=== PATIENT | female | born 1990 | race Caucasian/White ===

== ENCOUNTER 2019-03-19 09:11 | Outpatient (CLI) | payer BC, SELFPAY | END 2019-03-19 09:31 | PROVIDERS: PCP Internal Medicine; Visit Provider Obstetrics & Gynecology | DX: Z34.91 Encounter for supervision of normal pregnancy, unspecified, first trimester (principal) | CPT/HCPCS: 36415; 84702 ==

== ENCOUNTER 2019-03-21 08:29 | Outpatient (CLI) | payer BC, SELFPAY | END 2019-03-21 08:49 | PROVIDERS: PCP Internal Medicine; Visit Provider Obstetrics & Gynecology | DX: Z34.91 Encounter for supervision of normal pregnancy, unspecified, first trimester (principal) | CPT/HCPCS: 36415; 84702 ==

== ENCOUNTER 2019-03-26 15:34 | Outpatient (CLI) | payer BC, SELFPAY ==
[2019-03-26 16:05] LABS: HGB 12.5 g/dL (12.0-15.5); Mean Corp. HGB Concentration 35.7 g/dL (32.0-36.0); Mean Corpuscular Hemoglobin 33.2 pg (27.0-33.0); Mean Corpuscular Volume 93.1 fL (80-95); Mean Platelet Volume 10.2 fL (8.0-11.0); Platelet Count 201 x1000/uL (130-400); RBC 3.76 m/cumm (4.00-5.20); White Blood Cell Count 7.96 k/cumm (4.4-10.8)
== END 2019-03-26 15:54 ==
PROVIDERS: PCP Internal Medicine; Visit Provider Obstetrics & Gynecology Gynecology
DX: O02.1 Missed abortion (principal); Z01.812 Encounter for preprocedural laboratory examination; Z01.818 Encounter for other preprocedural examination
CPT/HCPCS: 36415; 85027; 86850; 86900; 86901

== ENCOUNTER 2019-03-28 10:04 | Day surgery (SDC) | payer BC, SELFPAY ==
[2019-03-28] VITALS (7 sets, daily range): BP systolic 94–113; BP diastolic 42–69; PULSE 56–62; RESP 14–16; TEMP 36.7–37.2; O2SAT 98–100
[2019-03-28] MEDS: Doxycycline Hyclate 100 MG CAP PO (10:47)
[2019-03-28] MEDS: Lactated Ringers 1,000 ML 125 ML IV (10:50)
[2019-03-28] MEDS: FAMOTIDINE 20 MG/50 ML BAG 100 MG (11:25)
[2019-03-28] MEDS: Bupivacaine 0.25% Pres-Free 30 ML VIAL (11:35)
--- NOTE | 2019-03-28 11:40 | POCSPONT_PTH ---
PATIENT: Ying Alarcon LOC: [facility] U#:[id number] AGE/SX: 28/F ROOM: RE03/28/[address]: Baylee Wu : 1990 BED: DIS: 03/28/2019 SPEC #: [id number] RECD: 03/28/19 13:03 STATUS: GEORGES REQ #: [id number] LARON: 03/28/19 11:[address]: Baylee Wu DEPT: Surgical Specimen RECD BY: Shereen Santoyo ENTERED: 03/28/19 13:04 SP TYPE: POCSPONT MELISSA DR: Cr Aguilar Tissues: 1 - ,SPONTANEOUS Procedures: GROSS AND MICRO LEVEL 4 Comments: [id number]
--- NOTE | 2019-03-28 18:22 | W.PM.OP ---
Date of service: 03/28/19 Time of Service: 18:22 Operative Note DATE OF PROCEDURE: 03/28/19 PRE-OP DIAGNOSIS: Missed AB at 10 weeks estimated gestational age. POST-OP DIAGNOSIS: same PROCEDURE: Cervical dilatation and suction curettage SURGEON: Baylee Wu FILM AND VIDEO GRAPHICS DESIGNER: Chaparro Field ANESTHESIA: GETElena ESTIMATED BLOOD LOSS: 20 PATHOLOGY: other (Products of conception to pathology) COMPLICATIONS: None Patient was transported to: PACU Patient's condition: stable Implants: None Indications: 28-year-old G1, P0 female last menstrual period of 01/13/2019 currently 10w1d EGA with a missed AB documented at the time of a dating ultrasound earlier this month. There is no evidence of a pole yolk sac at that time. Of note she had a uterine septum and the gestational sac occupied both right and left sides of the septum. I requested that Dr. Field performed an abdominal ultrasound during the D&C for visualization of both sides of the septum. Findings: Uterus retroverted sounded to 10 cm moderate amount of tissue was obtained. Procedure Description: Patient was taken to the operating room she is placed in the dorsal supine position and general endotracheal anesthesia was administered without difficulty. She was then placed in the dorsal lithotomy position in [facility]. She was prepped and draped in usual sterile fashion a bivalve speculum was placed in the vagina the cervix was infiltrated with quarter percent Marcaine without epinephrine and the anterior lip of the cervix was grasped with a single-tooth tenaculum. A paracervical block was performed with quarter percent Marcaine with infiltration of approximately 5 cc at the 4 and 8:00 cervical vaginal interface. The cervix was then sequentially dilated to a maximum of 19 Lacey. Direct visualization with the ultrasound a 7 mm curved suction cannula was inserted into the uterine cavity and attached to suction. The tissue was removed in its entirety. My impression was that the length of the uterine septum was one half of the cavity length. At the completion of the procedure there is no evidence of gestational tissue remaining. Instruments removed from the patient's vagina tenaculum site was noted to be hemostatic. The patient was then placed in the dorsal supine position and successfully awakened extubated and transported to recovery area in stable condition. She received 100 mg of oral doxycycline prior to the procedure and had in place SCDs for the entire case. All sponge lap needle counts correct x2.
== END 2019-03-28 13:10 ==
PROVIDERS: PCP Internal Medicine; Visit Provider Obstetrics & Gynecology Gynecology
PROC: (CPT 59820; principal; 2019-03-28 10:00)
DX: O02.1 Missed abortion (principal)
CPT/HCPCS: 59820; 88305; J1100; J1885; J2405; J3010

== ENCOUNTER 2019-04-06 12:01 | Outpatient (CLI) | payer BC, SELFPAY ==
[2019-04-06 12:58] LABS: HCG Quant, Pregnancy 197 mIU/mL (1-3)
== END 2019-04-06 12:21 ==
PROVIDERS: PCP Internal Medicine; Visit Provider Obstetrics & Gynecology Gynecology
DX: O02.1 Missed abortion (principal)
CPT/HCPCS: 36415; 84702

== ENCOUNTER 2019-09-19 14:18 | Outpatient (CLI) | payer BC, SELFPAY ==
[2019-09-19 14:48] LABS: Abs Immature Grans 0.03 k/cumm (0.0-0.09); Absolute Basophil Count 0.01 k/cumm (0.0-0.2); Absolute Eosinophil Count 0.11 k/cumm (0.0-0.7); Absolute Monocyte Count 0.88 k/cumm (0.11-0.7); Absolute Neutrophil Count 7.39 k/cumm (1.2-6.7); Basophils % 0.1; Eosinophils % 1.1; HCT 34.9 % (36.0-46.0); HGB 12.3 g/dL (12.0-15.5); Immature Grans % 0.3; Lymphocytes % 19.2; Mean Corp. HGB Concentration 35.2 g/dL (32.0-36.0); Mean Corpuscular Hemoglobin 32.5 pg (27.0-33.0); Mean Corpuscular Volume 92.3 fL (80-95); Mean Platelet Volume 9.5 fL (8.0-11.0); Monocytes % 8.4; Neutrophils % 70.9; Platelet Count 197 x1000/uL (130-400); RBC 3.78 m/cumm (4.00-5.20); RBC Distribution Width 11.7 % (11.7-14.6); White Blood Cell Count 10.42 k/cumm (4.4-10.8)
[2019-09-19 18:42] LABS: *AMPHETAMINES SCREEN URINE Negative (Negative); *BARBITURATES SCREEN URINE Negative (Negative); *BENZODIAZEPINES SCREEN URINE Negative (Negative); Cannabinoids THC Negative (Negative); Cocaine Screen,Urine Negative (Negative); METHADONE URINE SCREEN Negative (Negative); OPIATES URINE SCREEN Negative (Negative)
[2019-09-19 18:49] LABS: Tricyclic Antidepressants Negative (Negative)
[2019-09-20 10:54] LABS: Varicella IgG Antibody Positive (See Note)
[2019-09-20 11:11] LABS: Rubella IgG Ab (UVM) Positive (See Note)
[2019-09-20 11:48] LABS: HIV-1/2 Ag & Ab Screen Negative (Negative)
[2019-09-20 15:52] LABS: Hepatitis C Ab w Rflx HCV PCR Negative (Negative)
[2019-09-20 16:18] LABS: Hepatitis B Surface Ag Negative (Negative)
[2019-09-20 16:28] LABS: Syphilis Total Ab w/Reflex Nonreactive (Nonreactive)
[2019-09-23 22:05] LABS: Buprenorphine Negative; Norbuprenorphine Negative
== END 2019-09-19 14:38 ==
PROVIDERS: PCP Internal Medicine; Visit Provider Advanced Practice Midwife
DX: Z34.91 Encounter for supervision of normal pregnancy, unspecified, first trimester (principal); Z11.4 Encounter for screening for human immunodeficiency virus [HIV]; Z11.59 Encounter for screening for other viral diseases; Z01.84 Encounter for antibody response examination
CPT/HCPCS: 36415; 80307; 86787; 86803; 86850; 86900; 86901; 87340; 87389; 85025; 86762; 86780; 87086

== ENCOUNTER 2019-10-11 10:16 | Outpatient (CLI) | payer BC, SELFPAY ==
[2019-10-11 10:48] LABS: Kit/Specimen SENT
[2019-10-17 19:01] LABS: Specimen WB Whole Blood
[2019-10-18 15:46] LABS: Result Summary NEGATIVE; Specimen WB Whole Blood
== END 2019-10-11 10:36 ==
PROVIDERS: PCP Internal Medicine; Visit Provider Advanced Practice Midwife
DX: Z34.91 Encounter for supervision of normal pregnancy, unspecified, first trimester (principal); Z36.89 Encounter for other specified antenatal screening
CPT/HCPCS: 36415; 81329; 81220

== ENCOUNTER 2019-10-17 22:12 | Outpatient (REF) | payer BC, SELFPAY ==
[2019-10-19 14:06] LABS: Chlamydia Result Negative (Negative); GC Result Negative (Negative)
== END 2019-10-17 22:32 ==
LOC: LBN 22:12
PROVIDERS: PCP Internal Medicine; Visit Provider Advanced Practice Midwife
DX: Z34.91 Encounter for supervision of normal pregnancy, unspecified, first trimester (principal); Z11.3 Encounter for screening for infections with a predominantly sexual mode of transmission
CPT/HCPCS: 87491; 87591

== ENCOUNTER 2019-11-21 01:19 | Outpatient (CLI) | payer BC, SELFPAY ==
--- NOTE | 2019-11-21 13:45 | DI.US_ITS ---
EXAM: US OB 2-3 TRIMESTER CLINICAL HISTORY: SURVEY, POSSIBLE SEPTATED UTERUS, Z34.90 TECHNIQUE: Ultrasound performed using standard protocol. COMPARISON: No exams were available for comparison FINDINGS: The fetus is in breech position. The placenta is anterior. The biometric measurements correspond to 19 weeks 4 days. This is above the expected range based on previous dating. No abnormalities are identified. The amount of amniotic fluid appears visually normal. IMPRESSION: size is large for gestational age.
== END 2019-11-21 01:39 ==
PROVIDERS: PCP Internal Medicine; Visit Provider Advanced Practice Midwife
DX: Z34.92 Encounter for supervision of normal pregnancy, unspecified, second trimester (principal); Z3A.19 19 weeks gestation of pregnancy
CPT/HCPCS: 76805

== ENCOUNTER 2020-01-30 16:05 | Outpatient (REF) | payer BC, SELFPAY ==
[2020-01-30 15:13] LABS: Glucose,1 Hr (Glucola) 128 mg/dL (80-140)
[2020-01-30 15:19] LABS: HCT 38.4 % (36.0-46.0); HGB 13.3 g/dL (12.0-15.5); Mean Corp. HGB Concentration 34.6 g/dL (32.0-36.0); Mean Corpuscular Hemoglobin 33.3 pg (27.0-33.0); Mean Corpuscular Volume 96.2 fL (80-95); Mean Platelet Volume 11.2 fL (8.0-11.0); Platelet Count 158 x1000/uL (130-400); RBC 3.99 m/cumm (4.00-5.20); RBC Distribution Width 12.2 % (11.7-14.6); White Blood Cell Count 9.55 k/cumm (4.4-10.8)
== END 2020-01-30 16:25 ==
LOC: LBN 16:05
PROVIDERS: PCP Internal Medicine; Visit Provider Advanced Practice Midwife
DX: Z34.93 Encounter for supervision of normal pregnancy, unspecified, third trimester (principal)
CPT/HCPCS: 82950; 85027

== ENCOUNTER 2020-03-13 10:09 | Outpatient (CLI) | payer BC, SELFPAY ==
--- NOTE | 2020-03-13 13:50 | DI.US_ITS ---
EXAM: US OB JARVIS WEIGHT CLINICAL HISTORY: borderline htn, gestational htn, O13.9 TECHNIQUE: Ultrasound performed using standard protocol. COMPARISON: US US OB 2-3 TRIMESTER from 11/21/2019 FINDINGS: Ob ultrasound was performed lies in 3rd trimester protocol. biometry is consistent with gestat ional age of 36 weeks 1 day and EDC of April 09, 2020. The estimated weight is 2720 grams which is at the 87th percentile for predicted gestational age. Placenta is anterior with no placenta previa. There is visually a normal quantity of amniotic fluid and the JARVIS is 10. Fetus is in cephalic presentation. heart rate is 136 BPM. IMPRESSION: DATA REPOSITORY:
== END 2020-03-13 10:29 ==
PROVIDERS: PCP Internal Medicine; Visit Provider Advanced Practice Midwife
DX: O13.3 Gestational [pregnancy-induced] hypertension without significant proteinuria, third trimester (principal)
CPT/HCPCS: 76816

== ENCOUNTER 2020-03-13 10:52 | Observation (INO) | payer BC, SELFPAY ==
[2020-03-13 09:50] LABS: HCT 36.8 % (36.0-46.0); HGB 12.9 g/dL (12.0-15.5); Mean Corp. HGB Concentration 35.1 g/dL (32.0-36.0); Mean Corpuscular Hemoglobin 33.3 pg (27.0-33.0); Mean Corpuscular Volume 95.1 fL (80-95); Mean Platelet Volume 10.4 fL (8.0-11.0); RBC 3.87 m/cumm (4.00-5.20); RBC Distribution Width 12.1 % (11.7-14.6); White Blood Cell Count 8.38 k/cumm (4.4-10.8)
[2020-03-13 10:02] LABS: ALT 22 U/L (14-59); AST 25 U/L (15-37); Albumin 2.7 g/dL (3.4-5.0); Alkaline Phosphatase 91 U/L (46-116); Anion Gap 6.5 mmol/L (3-11); BUN 9 mg/dL (7-18); Bilirubin, Total 0.4 mg/dL (0.2-1.0); CO2 24.5 mmol/L (21.0-32.0); CREATININE 0.91 mg/dL (0.55-1.02); Calcium 8.8 mg/dL (8.5-10.1); Chloride 103 mmol/L (98-107); Glucose 99 mg/dL (74-106); Potassium 3.8 mmol/L (3.5-5.1); Sodium 134 mmol/L (136-145); Total Protein 6.4 g/dL (6.4-8.2)
[2020-03-13 10:03] LABS: PROTEIN < 6.0 mg/dL
[2020-03-13 10:04] LABS: COMMENT (LAB VIEW ONLY) 29.46 mg/dL
[2020-03-13 11:59] LABS: Platelet Count 126 x1000/uL (130-400)
== END 2020-03-13 14:18 | disposition home or self-care (01) ==
LOC: OBS 10:57
PROVIDERS: Advanced Practice Midwife; Admitting Provider Advanced Practice Midwife; PCP Internal Medicine; Visit Provider Advanced Practice Midwife
DX: O26.893 Other specified pregnancy related conditions, third trimester (principal); O13.3 Gestational [pregnancy-induced] hypertension without significant proteinuria, third trimester; Z3A.34 34 weeks gestation of pregnancy
CPT/HCPCS: 36415; 80053; 85027; 59025; 82565; 84156; 84550; 85049; G0378

== ENCOUNTER 2020-03-28 18:52 | Outpatient (REF) | payer BC, SELFPAY ==
[2020-03-28 19:28] LABS: *AMPHETAMINES SCREEN URINE Negative (Negative); *BARBITURATES SCREEN URINE Negative (Negative); *BENZODIAZEPINES SCREEN URINE Negative (Negative); Cannabinoids THC Negative (Negative); Cocaine Screen,Urine Negative (Negative); METHADONE URINE SCREEN Negative (Negative); OPIATES URINE SCREEN Negative (Negative)
[2020-03-28 19:29] LABS: Tricyclic Antidepressants Negative (Negative)
[2020-04-04 12:57] LABS: Buprenorphine Negative; Norbuprenorphine Negative
== END 2020-03-28 19:12 ==
LOC: LBN 18:52
PROVIDERS: PCP Internal Medicine; Visit Provider Advanced Practice Midwife
DX: Z34.93 Encounter for supervision of normal pregnancy, unspecified, third trimester (principal); Z36.85 Encounter for antenatal screening for Streptococcus B
CPT/HCPCS: 80307; 87081

== ENCOUNTER 2020-04-14 11:45 | Outpatient (CLI) | payer BC, SELFPAY ==
[2020-04-14 12:51] LABS: ALT 28 U/L (14-59); AST 33 U/L (15-37); Alkaline Phosphatase 117 U/L (46-116); BUN 12 mg/dL (7-18); Bilirubin, Total 0.5 mg/dL (0.2-1.0); CREATININE 1.01 mg/dL (0.55-1.02); Calcium 9.2 mg/dL (8.5-10.1); Chloride 103 mmol/L (98-107); Glucose 69 mg/dL (74-106); Potassium 3.7 mmol/L (3.5-5.1); Sodium 136 mmol/L (136-145); Total Protein 6.8 g/dL (6.4-8.2); Uric Acid 7.1 mg/dL (2.6-6.0)
[2020-04-14 13:09] LABS: COMMENT (LAB VIEW ONLY) 38.42 mg/dL; PROTEIN < 6.0 mg/dL
[2020-04-14 13:18] LABS: HCT 38.4 % (36.0-46.0); HGB 13.6 g/dL (12.0-15.5); Mean Corp. HGB Concentration 35.4 g/dL (32.0-36.0); Mean Platelet Volume 12.4 fL (8.0-11.0); RBC Distribution Width 12.7 % (11.7-14.6); White Blood Cell Count 7.05 k/cumm (4.4-10.8)
[2020-04-14 13:39] LABS: Platelet Count 99 x1000/uL (130-400)
== END 2020-04-14 12:05 ==
PROVIDERS: PCP Internal Medicine; Visit Provider Advanced Practice Midwife
DX: O13.3 Gestational [pregnancy-induced] hypertension without significant proteinuria, third trimester (principal); Z3A.38 38 weeks gestation of pregnancy
CPT/HCPCS: 36415; 80053; 85027; 59025; 82565; 84156; 84550

== ENCOUNTER 2020-04-15 11:07 | Inpatient (IN) | payer BC, SELFPAY ==
[2020-04-15 11:30] VITALS: BP 126/77; PULSE 77; RESP 14; TEMP 36.5
[2020-04-15 11:49] LABS: HCT 38.8 % (36.0-46.0); HGB 13.5 g/dL (12.0-15.5); Mean Corp. HGB Concentration 34.8 g/dL (32.0-36.0); Mean Corpuscular Hemoglobin 33.3 pg (27.0-33.0); Mean Corpuscular Volume 95.8 fL (80-95); Mean Platelet Volume 12.7 fL (8.0-11.0); RBC 4.05 m/cumm (4.00-5.20); RBC Distribution Width 12.9 % (11.7-14.6); White Blood Cell Count 7.19 k/cumm (4.4-10.8)
[2020-04-15 11:58] LABS: Platelet Count 109 x1000/uL (130-400)
[2020-04-15] MEDS: miSOPROStol 25 MCG TAB PO ×3 (13:09→23:50)
[2020-04-15 15:56] LABS: ALT 28 U/L (14-59); AST 32 U/L (15-37); Albumin 2.9 g/dL (3.4-5.0); Alkaline Phosphatase 120 U/L (46-116); BUN 10 mg/dL (7-18); Bilirubin, Total 0.4 mg/dL (0.2-1.0); CREATININE 1.04 mg/dL (0.55-1.02); Calcium 9.2 mg/dL (8.5-10.1); Chloride 102 mmol/L (98-107); Glucose 99 mg/dL (74-106); Potassium 3.7 mmol/L (3.5-5.1); Sodium 137 mmol/L (136-145); Total Protein 6.8 g/dL (6.4-8.2); Uric Acid 7.2 mg/dL (2.6-6.0)
[2020-04-15 19:48] LABS: PROTEIN 7.4 mg/dL
[2020-04-15 19:49] LABS: COMMENT (LAB VIEW ONLY) 49.41 mg/dL; Prot/Crea Ur Ratio 0.14
[2020-04-15 22:39] LABS: COVID-19 RT-PCR UVMMC Result Negative (Negative)
[2020-04-15 23:15] LABS: HCT 38.9 % (36.0-46.0); HGB 13.6 g/dL (12.0-15.5); Mean Corpuscular Hemoglobin 33.5 pg (27.0-33.0); Mean Corpuscular Volume 95.8 fL (80-95); Mean Platelet Volume 12.2 fL (8.0-11.0); RBC 4.06 m/cumm (4.00-5.20); RBC Distribution Width 12.8 % (11.7-14.6)
[2020-04-15 23:24] LABS: Platelet Count 103 x1000/uL (130-400)
[2020-04-15 23:34] LABS: ALT 25 U/L (14-59); AST 30 U/L (15-37); Albumin 2.9 g/dL (3.4-5.0); Alkaline Phosphatase 119 U/L (46-116); BUN 14 mg/dL (7-18); Bilirubin, Total 0.4 mg/dL (0.2-1.0); CREATININE 1.02 mg/dL (0.55-1.02); Calcium 9.2 mg/dL (8.5-10.1); Chloride 102 mmol/L (98-107); Glucose 83 mg/dL (74-106); Potassium 3.9 mmol/L (3.5-5.1); Sodium 136 mmol/L (136-145); Total Protein 6.8 g/dL (6.4-8.2)
[2020-04-15 23:37] LABS: PROTEIN 8.8 mg/dL
[2020-04-15 23:39] LABS: Uric Acid 19.6 mg/dL (2.6-6.0)
[2020-04-15 23:52] LABS: COMMENT (LAB VIEW ONLY) 31.58 mg/dL; Prot/Crea Ur Ratio 0.27
[2020-04-16] MEDS: miSOPROStol 25 MCG TAB PO (10:30)
[2020-04-16 11:55] LABS: HCT 39.4 % (36.0-46.0); HGB 13.9 g/dL (12.0-15.5); Mean Corp. HGB Concentration 35.3 g/dL (32.0-36.0); Mean Corpuscular Hemoglobin 33.7 pg (27.0-33.0); Mean Corpuscular Volume 95.4 fL (80-95); Mean Platelet Volume 12.7 fL (8.0-11.0); RBC 4.13 m/cumm (4.00-5.20); White Blood Cell Count 9.05 k/cumm (4.4-10.8)
[2020-04-16 12:16] LABS: ALT 28 U/L (14-59); AST 30 U/L (15-37); Albumin 2.9 g/dL (3.4-5.0); Alkaline Phosphatase 119 U/L (46-116); Anion Gap 12.6 mmol/L (3-11); BUN 14 mg/dL (7-18); Bilirubin, Total 0.5 mg/dL (0.2-1.0); CO2 20.4 mmol/L (21.0-32.0); CREATININE 0.89 mg/dL (0.55-1.02); Calcium 9.5 mg/dL (8.5-10.1); Chloride 102 mmol/L (98-107); Glucose 74 mg/dL (74-106); Potassium 3.7 mmol/L (3.5-5.1); Sodium 135 mmol/L (136-145); Total Protein 6.8 g/dL (6.4-8.2)
[2020-04-16 12:27] LABS: Platelet Count 108 x1000/uL (130-400)
[2020-04-16 13:28] LABS: PROTEIN 55.1 mg/dL
[2020-04-16 13:36] LABS: COMMENT (LAB VIEW ONLY) 31.07 mg/dL; Prot/Crea Ur Ratio 1.77
[2020-04-16] MEDS: FentaNYL/ROPIvacaine 2 mcg/ml and 0.1% 200 ML CADD Cassette EP (16:55)
[2020-04-16] MEDS: Lactated Ringers 1,000 ML 200 ML IV (18:00)
[2020-04-16] MEDS: Lactated Ringers 250 ML 500 ML IV (18:29)
[2020-04-16] MEDS: ceFAZolin 2 GM/50 ML BAG 100 GM (21:58)
[2020-04-16] MEDS: Sodium Citrate 30 ML CUP (21:59)
[2020-04-16 22:07] LABS: HCT 39.3 % (36.0-46.0); Mean Corp. HGB Concentration 35.6 g/dL (32.0-36.0); Mean Corpuscular Hemoglobin 33.7 pg (27.0-33.0); Mean Corpuscular Volume 94.7 fL (80-95); Mean Platelet Volume 12.9 fL (8.0-11.0); RBC 4.15 m/cumm (4.00-5.20); RBC Distribution Width 12.9 % (11.7-14.6); White Blood Cell Count 15.33 k/cumm (4.4-10.8)
[2020-04-16 22:42] LABS: Platelet Count 110 x1000/uL (130-400)
[2020-04-16] MEDS: AZITHROMYCIN 500 MG in Normal Saline 250 ML 250 MG IVPB (22:55)
--- NOTE | 2020-04-17 00:13 | W.PM.PROGNOT ---
Date of Service Date of service: 04/17/20 Time of Service: 00:13 Assessment and Plan Assessment and plan (1) Arrest of dilation, delivered, current hospitalization: Status: Acute (2) Non-reassuring electronic monitoring tracing: Status: Acute Assessment and plan: Plan to proceed with primary section. Risks of surgery were reviewed. All questions were answered to the patient's satisfaction and consent for surgery was obtained. Subjective Subjective Interval history since last seen: Late Entry I was called to evaluate the patient. She did progress to 6 cm and remained as such for several hours. She was started on pitocin and had a period of bradycardia lasting nearly 6 minutes with recovery. In addition there was a period of late decelerations with minimal variability. Pitocin had been dosed to 1 mu/min and was discontinued during the non-reassuring period. Following discontinuation of pitocin the heart tracing recovered and decelerations resolved. I discussed options with the patient. My recommendation was to proceed with primary section secondary to FTP and NRFHTs. Objective Objective Clinical Data: Abnormal lab results 04/16/20 04/16/20 04/16/20 Range/Units 11:40 11:40 22:00 WBC 15.33 H D (4.4-10.8) k/cumm MCV 95.4 H (80-95) fL MCH 33.7 H 33.7 H (27.0-33.0) pg Plt Count 108 L 110 L (130-400) x1000/uL MPV 12.7 H 12.9 H (8.0-11.0) fL Sodium 135 L (136-145) mmol/L Carbon Dioxide 20.4 L (21.0-32.0) mmol/L Anion Gap 12.6 H (3-11) mmol/L Uric Acid 7.0 H (2.6-6.0) mg/dL Alkaline Phosphatase 119 H (46-116) U/L Albumin 2.9 L (3.4-5.0) g/dL Vital Signs Temperature 97.7 F 04/15/20 11:30 Pulse 77 04/15/20 11:30 Respiratory Rate 14 04/15/20 11:30 Blood Pressure 126/77 04/15/20 11:30 Oxygen Delivery Method Room Air 04/15/20 11:30 Oxygen Flow Rate 0 04/15/20 11:30 Intake & Output 04/16/20 04/16/20 04/17/20 11:59 23:59 11:59 Intake Total 550 / 550 Output Total 1000 / 1000 Balance -450 / -450 Weight 193 lb 1.999 oz Intake: IV 550 / 550 Output: Urine 400 / 400 Estimated Blood Loss 600 / 600 Other: Urine Color Yellow Urine Appearance Clear Comment PT ARRIVED TO OR WITH URINARY CATH. DRAINING CLEAR YELLOW URINE. Laboratory Results WBC 15.33 k/cumm (4.4-10.8) H D 04/16/20 22:00 RBC 4.15 m/cumm (4.00-5.20) 04/16/20 22:00 Hgb 14.0 g/dL (12.0-15.5) 04/16/20 22:00 Hct 39.3 % (36.0-46.0) 04/16/20 22:00 MCV 94.7 fL (80-95) 04/16/20 22:00 MCH 33.7 pg (27.0-33.0) H 04/16/20 22:00 MCHC 35.6 g/dL (32.0-36.0) 04/16/20 22:00 RDW 12.9 % (11.7-14.6) 04/16/20 22:00 Plt Count 110 x1000/uL (130-400) L 04/16/20 22:00 MPV 12.9 fL (8.0-11.0) H 04/16/20 22:00 Sodium 135 mmol/L (136-145) L 04/16/20 11:40 Potassium 3.7 mmol/L (3.5-5.1) 04/16/20 11:40 Chloride 102 mmol/L (98-107) 04/16/20 11:40 Carbon Dioxide 20.4 mmol/L (21.0-32.0) L 04/16/20 11:40 Anion Gap 12.6 mmol/L (3-11) H 04/16/20 11:40 BUN 14 mg/dL (7-18) 04/16/20 11:40 Creatinine 0.89 mg/dL (0.55-1.02) 04/16/20 11:40 Estimated GFR/1.73 m2 >= 60.00 (mL/min/1.73m2) 04/16/20 11:40 Glucose 74 mg/dL (74-106) 04/16/20 11:40 Uric Acid 7.0 mg/dL (2.6-6.0) H 04/16/20 11:40 Calcium 9.5 mg/dL (8.5-10.1) 04/16/20 11:40 Total Bilirubin 0.5 mg/dL (0.2-1.0) 04/16/20 11:40 AST 30 U/L (15-37) 04/16/20 11:40 ALT 28 U/L (14-59) 04/16/20 11:40 Alkaline Phosphatase 119 U/L (46-116) H 04/16/20 11:40 Total Protein 6.8 g/dL (6.4-8.2) 04/16/20 11:40 Albumin 2.9 g/dL (3.4-5.0) L 04/16/20 11:40 Ur Random Creatinine 31.07 mg/dL 04/16/20 11:53 U Random Total Protein 55.1 mg/dL 04/16/20 11:53 U [place] Prot/Creat Ratio 1.77 04/16/20 11:53 COVID-19 PCR Negative (Negative) 04/15/20 11:30 Nasopharyn COVID-19 PCR Not Applicable 04/15/20 11:30 Ref Test Perform Site [facility] lab 04/15/20 11:30 Patient ABO/Rh A Positive 04/15/20 11:35 Antibody Screen Negative 04/15/20 11:35
[2020-04-17] MEDS: Ketorolac 30 MG/ML VIAL IVP ×4 (00:30→18:43)
[2020-04-17] MEDS: Lactated Ringers 1,000 ML 120 ML IV (04:52)
--- NOTE | 2020-04-17 09:42 | W.PM.OP ---
Date of service: 04/17/20 Time of Service: 12:15 Operative Note Operative Note DATE OF PROCEDURE: 04/16/20 PRE-OP DIAGNOSIS: 1. FTP 2. NRFHTs following IOL at term. POST-OP DIAGNOSIS: same PROCEDURE: Primary low transverse section SURGEON: Chaparro Field ASSISTING SURGEON: Nicki Huertas ANESTHESIA: spinal ESTIMATED BLOOD LOSS: 600 PATHOLOGY: none sent COMPLICATIONS: None Patient was transported to: floor Patient's condition: stable Findings: 1. Delivered a LBM with tight nucal cord x 1 Procedure Description: The patient was taken to the operating room and after adequate spinal anesthesia was obtained the patient was placed in supine position with a left lateral tilt. The patient was prepped and draped in the usual sterile manner. A Pfannenstiel incision was made with a #10 blade scalpel and sharp dissection was carried down to the underlying layer of fascia. The fascia was incised the midline with a scalpel and the incision carried laterally in either direction with Lawrence scissors. The superior and inferior aspects of the fascial incision were dissected off the underlying layer of rectus muscles using both blunt and sharp dissection. The rectus were divided along the linea alba with blunt digital dissection. The peritoneum was entered sharply and the incision was extended superiorly and inferiorly with the Bovie cautery. The vesicouterine flap was tented up with pickups and incised with Metzenbaum scissors. The incision was extended laterally in either direction with the Metzenbaum scissors. The bladder flap was created digitally. The lower uterine segment was incised in a transverse manner with a scalpel and the incision was carried laterally in either direction via stretch. was found in cephalic presentation and delivered atraumatically. The mouth and nose were suctioned. The cord was clamped and cut. The infant was handed off to the awaiting wind tunnel mechanic. The placenta was manually extracted and the uterus cleared of all clots and debris. The hysterotomy was closed with a running locked stitch of #1 chromic. A second indicating layer of #1 chromic in a Lambert stitch was used to complete the repair and achieve hemostasis. The bladder flap was reapproximated with a running stitch of 0 Vicryl. The gutters were cleared of all clots and debris. The peritoneum was closed with a running stitch of 2-0 Vicryl. The subfascial space was thoroughly inspected and was noted to be hemostatic. The fascia was closed with a running stitch of 0 Vicryl. The subcutaneous tissues were closed with interrupted sutures of 3-0 Vicryl. The skin was closed with a running subcuticular stitch of 4-0 Monocryl and Dermabond was applied. The procedure was concluded at this point. Sponge, lap and needle counts were correct at the conclusion of the procedure. The patient tolerated the procedure well and was transferred to the floor in stable condition.
--- NOTE | 2020-04-17 09:48 | PGE_ITS ---
Date of Service Date of service: 04/17/20 Time of Service: 09:49 Assessment and Plan Assessment and plan (1) Non-reassuring electronic monitoring tracing: Status: Acute (2) S/P section: Status: Acute Assessment and plan: Routine post op care. Encourage ambulation. Discontinue mendoza catheter. At the patient's request will discontinue Percocet and replace with Tramadol prn. (3) Gestational thrombocytopenia: Status: Acute Assessment and plan: Labs remain pending this morning. Subjective Subjective Interval history since last seen: Doing well. Pain well controlled with Toradol and tylenol today. Not yet ambulatory. Mendoza catheter remains in place. No nausea or vomiting. Objective Objective Clinical Data: Abnormal lab results 04/16/20 04/16/20 04/16/20 Range/Units 11:40 11:40 22:00 WBC 15.33 H D (4.4-10.8) k/cumm MCV 95.4 H (80-95) fL MCH 33.7 H 33.7 H (27.0-33.0) pg Plt Count 108 L 110 L (130-400) x1000/uL MPV 12.7 H 12.9 H (8.0-11.0) fL Sodium 135 L (136-145) mmol/L Carbon Dioxide 20.4 L (21.0-32.0) mmol/L Anion Gap 12.6 H (3-11) mmol/L Uric Acid 7.0 H (2.6-6.0) mg/dL Alkaline Phosphatase 119 H (46-116) U/L Albumin 2.9 L (3.4-5.0) g/dL Vital Signs Temperature 97.7 F 04/15/20 11:30 Pulse 77 04/15/20 11:30 Respiratory Rate 14 04/15/20 11:30 Blood Pressure 126/77 04/15/20 11:30 Oxygen Delivery Method Room Air 04/15/20 11:30 Oxygen Flow Rate 0 04/15/20 11:30 Pain Level 5 04/17/20 07:11 Intake & Output 04/16/20 04/16/20 04/17/20 11:59 23:59 11:59 Intake Total 550 / 550 950 / 950 Output Total 1000 / 1000 Balance -450 / -450 950 / 950 Weight 193 lb 1.999 oz Intake: IV 550 / 550 950 / 950 Output: Urine 400 / 400 Estimated Blood Loss 600 / 600 Other: Urine Color Yellow Urine Appearance Clear Comment PT ARRIVED TO OR WITH URINARY CATH. DRAINING CLEAR YELLOW URINE. Laboratory Results WBC 15.33 k/cumm (4.4-10.8) H D 04/16/20 22:00 RBC 4.15 m/cumm (4.00-5.20) 04/16/20 22:00 Hgb 14.0 g/dL (12.0-15.5) 04/16/20 22:00 Hct 39.3 % (36.0-46.0) 04/16/20 22:00 MCV 94.7 fL (80-95) 04/16/20 22:00 MCH 33.7 pg (27.0-33.0) H 04/16/20 22:00 MCHC 35.6 g/dL (32.0-36.0) 04/16/20 22:00 RDW 12.9 % (11.7-14.6) 04/16/20 22:00 Plt Count 110 x1000/uL (130-400) L 04/16/20 22:00 MPV 12.9 fL (8.0-11.0) H 04/16/20 22:00 Sodium 135 mmol/L (136-145) L 04/16/20 11:40 Potassium 3.7 mmol/L (3.5-5.1) 04/16/20 11:40 Chloride 102 mmol/L (98-107) 04/16/20 11:40 Carbon Dioxide 20.4 mmol/L (21.0-32.0) L 04/16/20 11:40 Anion Gap 12.6 mmol/L (3-11) H 04/16/20 11:40 BUN 14 mg/dL (7-18) 04/16/20 11:40 Creatinine 0.89 mg/dL (0.55-1.02) 04/16/20 11:40 Estimated GFR/1.73 m2 >= 60.00 (mL/min/1.73m2) 04/16/20 11:40 Glucose 74 mg/dL (74-106) 04/16/20 11:40 Uric Acid 7.0 mg/dL (2.6-6.0) H 04/16/20 11:40 Calcium 9.5 mg/dL (8.5-10.1) 04/16/20 11:40 Total Bilirubin 0.5 mg/dL (0.2-1.0) 04/16/20 11:40 AST 30 U/L (15-37) 04/16/20 11:40 ALT 28 U/L (14-59) 04/16/20 11:40 Alkaline Phosphatase 119 U/L (46-116) H 04/16/20 11:40 Total Protein 6.8 g/dL (6.4-8.2) 04/16/20 11:40 Albumin 2.9 g/dL (3.4-5.0) L 04/16/20 11:40 Ur Random Creatinine 31.07 mg/dL 04/16/20 11:53 U Random Total Protein 55.1 mg/dL 04/16/20 11:53 U [place] Prot/Creat Ratio 1.77 04/16/20 11:53 COVID-19 PCR Negative (Negative) 04/15/20 11:30 Nasopharyn COVID-19 PCR Not Applicable 04/15/20 11:30 Ref Test Perform Site [facility] lab 04/15/20 11:30 Patient ABO/Rh A Positive 04/15/20 11:35 Antibody Screen Negative 04/15/20 11:35
[2020-04-17] MEDS: traMADol 50 MG TAB PO ×2 (10:28→14:51)
[2020-04-17] MEDS: Acetaminophen 325 MG TAB 650 MG PO ×2 (10:29→14:51)
[2020-04-17 11:46] LABS: HCT 35.4 % (36.0-46.0); HGB 12.4 g/dL (12.0-15.5); Mean Corpuscular Hemoglobin 33.7 pg (27.0-33.0); Mean Corpuscular Volume 96.2 fL (80-95); Mean Platelet Volume 12.4 fL (8.0-11.0); Platelet Count 116 x1000/uL (130-400); RBC 3.68 m/cumm (4.00-5.20); White Blood Cell Count 13.22 k/cumm (4.4-10.8)
[2020-04-17] MEDS: Normal Saline Flush 10 ML SYR IVP ×2 (12:15→18:44)
[2020-04-17] MEDS: Docusate Sodium 100 MG CAP PO (14:51)
--- NOTE | 2020-04-18 08:25 | W.PM.PROGNOT ---
Date of Service Date of service: 04/18/20 Time of Service: 08:25 Assessment and Plan Assessment and plan (1) S/P section: Status: Acute Assessment and plan: Postoperative day #2 status post primary low transverse section for arrest of labor. She did have a history of mildly elevated blood pressures with gestational thrombocytopenia. She is doing well today and will be discharged home this afternoon. Appropriate instructions were given. No heavy lifting, no driving for 2 weeks, and medication as indicated. Follow-up in 2 weeks for postop check and 6 weeks for examination (2) Gestational hypertension: Status: Acute Subjective Subjective Patient reports: no new complaints, pain is less, voiding w/o difficulty and flatus; denies vomiting and fever Exam Const General: cooperative, healthy appearing, comfortable and no acute distress Eyes General: appearance normal, both eyes and all related structures Resp Effort & Inspection: normal respiratory effort Cardio Rate: regular rate Rhythm: regular rhythm GI Inspection: normal to inspection Palpation: soft and no guarding Other: Incision is healing well without surrounding erythema or edema. Other: Uterus firm below the umbilicus per nursing Neuro General: patient alert, patient awake and patient oriented x3 Cognition: normal cognition Speech: speech normal Extrem General: normal to inspection, no calf tenderness and edema (1+) Laterality: bilateral Objective Objective Clinical Data: Abnormal lab results 04/17/20 Range/Units 11:22 WBC 13.22 H (4.4-10.8) k/cumm RBC 3.68 L (4.00-5.20) m/cumm Hct 35.4 L (36.0-46.0) % MCV 96.2 H (80-95) fL MCH 33.7 H (27.0-33.0) pg Plt Count 116 L (130-400) x1000/uL MPV 12.4 H (8.0-11.0) fL Vital Signs Temperature 97.7 F 04/15/20 11:30 Pulse 77 04/15/20 11:30 Respiratory Rate 14 04/15/20 11:30 Blood Pressure 126/77 04/15/20 11:30 Oxygen Delivery Method Room Air 04/15/20 11:30 Oxygen Flow Rate 0 04/15/20 11:30 Pain Level 3 04/17/20 18:43 Intake & Output 04/17/20 04/17/20 04/18/20 11:59 23:59 11:59 Intake Total 1949 Balance 1949 Intake: IV 1949 Laboratory Results WBC 13.22 k/cumm (4.4-10.8) H 04/17/20 11:22 RBC 3.68 m/cumm (4.00-5.20) L 04/17/20 11:22 Hgb 12.4 g/dL (12.0-15.5) 04/17/20 11:22 Hct 35.4 % (36.0-46.0) L 04/17/20 11:22 MCV 96.2 fL (80-95) H 04/17/20 11:22 MCH 33.7 pg (27.0-33.0) H 04/17/20 11:22 MCHC 35.0 g/dL (32.0-36.0) 04/17/20 11:22 RDW 13.0 % (11.7-14.6) 04/17/20 11:22 Plt Count 116 x1000/uL (130-400) L 04/17/20 11:22 MPV 12.4 fL (8.0-11.0) H 04/17/20 11:22 Sodium 135 mmol/L (136-145) L 04/16/20 11:40 Potassium 3.7 mmol/L (3.5-5.1) 04/16/20 11:40 Chloride 102 mmol/L (98-107) 04/16/20 11:40 Carbon Dioxide 20.4 mmol/L (21.0-32.0) L 04/16/20 11:40 Anion Gap 12.6 mmol/L (3-11) H 04/16/20 11:40 BUN 14 mg/dL (7-18) 04/16/20 11:40 Creatinine 0.89 mg/dL (0.55-1.02) 04/16/20 11:40 Estimated GFR/1.73 m2 >= 60.00 (mL/min/1.73m2) 04/16/20 11:40 Glucose 74 mg/dL (74-106) 04/16/20 11:40 Uric Acid 7.0 mg/dL (2.6-6.0) H 04/16/20 11:40 Calcium 9.5 mg/dL (8.5-10.1) 04/16/20 11:40 Total Bilirubin 0.5 mg/dL (0.2-1.0) 04/16/20 11:40 AST 30 U/L (15-37) 04/16/20 11:40 ALT 28 U/L (14-59) 04/16/20 11:40 Alkaline Phosphatase 119 U/L (46-116) H 04/16/20 11:40 Total Protein 6.8 g/dL (6.4-8.2) 04/16/20 11:40 Albumin 2.9 g/dL (3.4-5.0) L 04/16/20 11:40 Ur Random Creatinine 31.07 mg/dL 04/16/20 11:53 U Random Total Protein 55.1 mg/dL 04/16/20 11:53 U [place] Prot/Creat Ratio 1.77 04/16/20 11:53 COVID-19 PCR Negative (Negative) 04/15/20 11:30 Nasopharyn COVID-19 PCR Not Applicable 04/15/20 11:30 Ref Test Perform Site [facility] lab 04/15/20 11:30 Patient ABO/Rh A Positive 04/15/20 11:35 Antibody Screen Negative 04/15/20 11:35
[2020-04-18] MEDS: Ibuprofen 600 MG TAB PO (11:06)
[2020-04-18] MEDS: Acetaminophen 325 MG TAB 650 MG PO (11:06)
== END 2020-04-18 15:15 | disposition home or self-care (01) | DRG 787 ==
PROVIDERS: Obstetrics & Gynecology; Admitting Provider Advanced Practice Midwife; PCP Internal Medicine; Visit Provider Advanced Practice Midwife
PROC: (CPT 59514; principal; 2020-04-16 22:05)
DX: O99.12 Other diseases of the blood and blood-forming organs and certain disorders involving the immune mechanism complicating childbirth (principal); Z37.0 Single live birth; O13.4 Gestational [pregnancy-induced] hypertension without significant proteinuria, complicating childbirth; O98.32 Other infections with a predominantly sexual mode of transmission complicating childbirth; O62.1 Secondary uterine inertia; O76 Abnormality in fetal heart rate and rhythm complicating labor and delivery; O69.1XX0 Labor and delivery complicated by cord around neck, with compression, not applicable or unspecified; Z3A.38 38 weeks gestation of pregnancy; A60.00 Herpesviral infection of urogenital system, unspecified; D69.6 Thrombocytopenia, unspecified; O75.89 Other specified complications of labor and delivery; R11.10 Vomiting, unspecified; Z67.10 Type A blood, Rh positive
CPT/HCPCS: 59514; 36415; 80053; 85027; 86850; 86900; 86901; 99232; 99233; U0003; 82565; 84156; 84550; J0456; J0690; J1885; J2590; J3490

== ENCOUNTER 2021-06-11 03:33 | Outpatient (CLI) | payer BC, SELFPAY ==
[2021-06-11 12:25] LABS: Abs Immature Grans 0.04 10^3/uL (0.0-0.06); Absolute Basophil Count 0.03 10^3/uL (0.0-0.2); Absolute Eosinophil Count 0.17 10^3/uL (0.0-0.7); Absolute Monocyte Count 0.52 10^3/uL (0.1-0.8); Absolute Neutrophil Count 5.31 10^3/uL (1.2-6.7); Basophils % 0.4; Eosinophils % 2.1; HCT 36.1 % (36.0-46.0); HGB 12.5 g/dL (11.2-15.7); Immature Grans % 0.5; Lymphocytes % 26.6; MCH 31.9 pg (27.0-33.0); MCHC 34.6 % (32.0-36.0); MCV 92.1 fL (80-95); Monocytes % 6.3; Neutrophils % 64.1; Nucleated RBC 0 %; Platelet Count 193 10^3/uL (130-400); RBC 3.92 10^6/uL (3.93-5.22); RDW 11.5 % (11.7-14.6); RDW-SD 38.8 fL; WBC 8.27 10^3/uL (4.4-10.8)
[2021-06-11 13:43] LABS: TSH (W/Ref FT4) 2.31 uIU/mL (0.36-3.74)
[2021-06-11 15:11] LABS: *AMPHETAMINES SCREEN URINE Negative (Negative); *BARBITURATES SCREEN URINE Negative (Negative); *BENZODIAZEPINES SCREEN URINE Negative (Negative); Cannabinoids THC Negative (Negative); Cocaine Screen,Urine Negative (Negative); METHADONE URINE SCREEN Negative (Negative); OPIATES URINE SCREEN Negative (Negative)
[2021-06-11 15:12] LABS: Tricyclic Antidepressants Negative (Negative)
[2021-06-12 10:57] LABS: HIV-1/2 Ag & Ab Screen Negative (Negative)
[2021-06-12 11:24] LABS: Hepatitis C Ab w Rflx HCV PCR Negative (Negative)
[2021-06-12 11:33] LABS: Varicella IgG Antibody Positive (See Note)
[2021-06-12 11:36] LABS: Rubella IgG Ab (UVM) Positive (See Note)
[2021-06-12 12:33] LABS: Hepatitis B Surface Ag Negative (Negative)
[2021-06-12 13:39] LABS: Syphilis Total Ab w/Reflex Nonreactive (Nonreactive)
[2021-06-12 14:36] LABS: Chlamydia Result Negative (Negative); GC Result Negative (Negative)
[2021-06-18 10:30] LABS: Buprenorphine Negative ng/mL (Cutoff: 5.0); Norbuprenorphine Negative ng/mL (Cutoff: 2.5)
== END 2021-06-11 03:34 | disposition home or self-care (01) ==
LOC: LBO 03:33
PROVIDERS: PCP Internal Medicine; Visit Provider Advanced Practice Midwife
DX: O34.211 Maternal care for low transverse scar from previous cesarean delivery (principal); Z86.32 Personal history of gestational diabetes; Z87.59 Personal history of other complications of pregnancy, childbirth and the puerperium; Z11.3 Encounter for screening for infections with a predominantly sexual mode of transmission; Z11.4 Encounter for screening for human immunodeficiency virus [HIV]; Z11.59 Encounter for screening for other viral diseases; Z01.84 Encounter for antibody response examination; Z3A.10 10 weeks gestation of pregnancy
CPT/HCPCS: 36415; 80307; 86787; 86803; 86850; 86900; 86901; 87340; 87389; 87491; 87591; 84443; 85025; 86762; 86780; 87086

== ENCOUNTER 2021-10-06 02:51 | Outpatient (CLI) | payer BC, SELFPAY ==
[2021-10-06 09:55] LABS: HCT 35.7 % (36.0-46.0); HGB 12.2 g/dL (11.2-15.7); MCH 33.1 pg (27.0-33.0); MCHC 34.2 % (32.0-36.0); MCV 96.7 fL (80-95); MPV 9.6 fL (8.0-11.0); Platelet Count 156 10^3/uL (130-400); RBC 3.69 10^6/uL (3.93-5.22); RDW 11.9 % (11.7-14.6); RDW-SD 42.2 fL; WBC 10.57 10^3/uL (4.4-10.8)
[2021-10-06 10:00] LABS: Glucose,1 Hr (Glucola) 141 mg/dL (80-140)
== END 2021-10-06 02:52 | disposition home or self-care (01) ==
LOC: LBO 02:51
PROVIDERS: Advanced Practice Midwife; PCP Internal Medicine; Visit Provider Advanced Practice Midwife
DX: Z34.92 Encounter for supervision of normal pregnancy, unspecified, second trimester (principal); Z3A.27 27 weeks gestation of pregnancy
CPT/HCPCS: 36415; 82950; 85027

== ENCOUNTER 2021-10-13 03:10 | Outpatient (CLI) | payer BC, SELFPAY ==
[2021-10-13 10:11] LABS: Glucose 1 Hour 179 mg/dL
[2021-10-13 12:13] LABS: Glucose 3 Hour 134 mg/dL
== END 2021-10-13 03:11 | disposition home or self-care (01) ==
PROVIDERS: PCP Internal Medicine; Visit Provider Advanced Practice Midwife
DX: Z34.93 Encounter for supervision of normal pregnancy, unspecified, third trimester (principal)
CPT/HCPCS: 36410; 82951

== ENCOUNTER 2021-12-10 04:26 | Outpatient (CLI) | payer BC, SELFPAY ==
[2021-12-10 10:23] LABS: HCT 36.7 % (36.0-46.0); HGB 12.7 g/dL (11.2-15.7); MCH 33.1 pg (27.0-33.0); MCHC 34.6 % (32.0-36.0); MCV 95.6 fL (80-95); MPV 10.9 fL (8.0-11.0); Platelet Count 134 10^3/uL (130-400); RBC 3.84 10^6/uL (3.93-5.22); RDW-SD 41.5 fL
== END 2021-12-10 04:27 | disposition home or self-care (01) ==
LOC: LBO 04:26
PROVIDERS: PCP Internal Medicine; Visit Provider Advanced Practice Midwife
DX: Z34.93 Encounter for supervision of normal pregnancy, unspecified, third trimester (principal); Z86.2 Personal history of diseases of the blood and blood-forming organs and certain disorders involving the immune mechanism
CPT/HCPCS: 36415; 85027

== ENCOUNTER 2021-12-10 15:55 | Outpatient (REF) | payer BC, SELFPAY ==
[2021-12-10 16:00] LABS: *AMPHETAMINES SCREEN URINE Negative (Negative); *BARBITURATES SCREEN URINE Negative (Negative); *BENZODIAZEPINES SCREEN URINE Negative (Negative); Cannabinoids THC Negative (Negative); Cocaine Screen,Urine Negative (Negative); METHADONE URINE SCREEN Negative (Negative); OPIATES URINE SCREEN Negative (Negative)
[2021-12-10 16:05] LABS: Tricyclic Antidepressants Negative (Negative)
[2021-12-16 12:05] LABS: Buprenorphine Negative ng/mL (Cutoff: 5.0); Norbuprenorphine Negative ng/mL (Cutoff: 2.5)
== END 2021-12-10 15:56 | disposition home or self-care (01) ==
LOC: LBN 15:55
PROVIDERS: PCP Internal Medicine; Visit Provider Advanced Practice Midwife
DX: Z34.93 Encounter for supervision of normal pregnancy, unspecified, third trimester (principal)
CPT/HCPCS: 80307; 87081

== ENCOUNTER 2022-01-07 13:11 | Outpatient (CLI) | payer BC, SELFPAY ==
[2022-01-07 13:51] VITALS: BP 117/69; PULSE 71
[2022-01-07 14:01] VITALS: BP 117/69; PULSE 71; TEMP 36.5
--- NOTE | 2022-01-07 14:35 | W.OBNST ---
Date of service: 01/07/22 Time of Service: 13:40 NST Evaluation Reason for NST Reasons for Nonstress Test: POSTDATES Gestational Age Gestational Age in Weeks and Days: 40 Weeks and 1Days Test and Monitor Explained Test/Monitor Explained: Test Explained and Monitor Explained Vital Signs Blood Pressure: 117/69 Pulse: 71 Temperature: 97.7 F Urine Results Urine Protein: Negative Urine Ketones: Negative Urine Glucose: Negative Urine Blood: Negative NST Information Date on Monitor: 01/07/22 Time on Monitor: 13:14 Date off Monitor: 01/07/22 Time off Monitor: 13:58 Total Time on Monitor: 44 NST Interventions: None Contraction Frequency: q8-10 NST Evaluation Patient States Movement: Present FHR Baseline: 130 Variability: Moderate 6-25 bpm Accelerations: 15x15 Decelerations: None NST Results: Reactive Note NST Note Note: NST done today due to 40 weeks gestation and maternal anxiety as last her baby had nuchal cord and distress in labor. Today NST is reactive, CAT I and reassuring. Patient is reassured and will keep her next appointment for Tuesday with MD. ZACARIAS NST Reviewed and Verified by: Pilar Cornelius
[2022-01-07 14:36] VITALS: BP 117/69; PULSE 71; TEMP 36.5
[2022-01-10 01:00] VITALS: BP 130/83; PULSE 98
== END 2022-01-07 14:00 | disposition home or self-care (01) ==
LOC: BCD 13:14 → OBS 13:47
PROVIDERS: PCP Internal Medicine; Visit Provider Advanced Practice Midwife
DX: O48.0 Post-term pregnancy (principal); Z3A.40 40 weeks gestation of pregnancy
CPT/HCPCS: 59025

== ENCOUNTER 2022-01-11 04:01 | Outpatient (CLI) | payer BC, SELFPAY ==
[2022-01-11 09:19] LABS: Source Nasal/Nares
[2022-01-11 14:44] LABS: COVID-19 PCR Negative (Negative)
== END 2022-01-11 04:02 | disposition home or self-care (01) ==
PROVIDERS: PCP Internal Medicine; Visit Provider Obstetrics & Gynecology
DX: Z20.822 Contact with and (suspected) exposure to COVID-19 (principal); Z01.818 Encounter for other preprocedural examination
CPT/HCPCS: 87635

== ENCOUNTER 2022-01-11 04:12 | Outpatient (CLI) | payer BC, SELFPAY ==
[2022-01-11 09:18] LABS: HCT 36.6 % (36.0-46.0); HGB 12.4 g/dL (11.2-15.7); MCH 32.7 pg (27.0-33.0); MCHC 33.9 % (32.0-36.0); MCV 96.6 fL (80-95); Platelet Count 142 10^3/uL (130-400); RBC 3.79 10^6/uL (3.93-5.22); RDW 12.4 % (11.7-14.6); RDW-SD 43.8 fL; WBC 8.36 10^3/uL (4.4-10.8)
== END 2022-01-11 04:13 | disposition home or self-care (01) ==
LOC: LBO 04:12
PROVIDERS: PCP Internal Medicine; Visit Provider Obstetrics & Gynecology
DX: O34.211 Maternal care for low transverse scar from previous cesarean delivery (principal); Z3A.40 40 weeks gestation of pregnancy; Z01.818 Encounter for other preprocedural examination; Z01.812 Encounter for preprocedural laboratory examination
CPT/HCPCS: 36415; 85027; 86850; 86900; 86901

== ENCOUNTER 2022-01-13 05:59 | Inpatient (IN) | payer BC, SELFPAY ==
[2022-01-13] VITALS (9 sets, daily range): BP systolic 110–138; BP diastolic 67–81; PULSE 56–75; RESP 12–18; TEMP 36.4–37; O2SAT 98–100; BMI 33.7
[2022-01-13] MEDS: Normal Saline Flush 10 ML SYR IVP ×3 (06:40→21:55)
[2022-01-13] MEDS: Lactated Ringers 1,000 ML 125 ML IV (06:45)
[2022-01-13] MEDS: ceFAZolin 2 GM/50 ML BAG IVPB (06:56)
[2022-01-13] MEDS: Sodium Citrate 30 ML CUP PO (07:17)
--- NOTE | 2022-01-13 07:25 | ANES.PREOP_ITS ---
General Info Date of Service Date Performed: 01/13/22 Height: 5 ft 4 in Weight: 89.358 kg Body Mass Index (BMI): 33.7 Surgical Procedure: Operation Date: 01/13/22 07:40 Proposed Procedure Side Surgeon p Section Repeat Fani Currie DO Actual Procedure Side Surgeon p Section Repeat Fani Currie DO Meds Allergies and Home Medications Allergies Allergy/AdvReac Type Severity Reaction Status Date / Time No Known Allergies Allergy Verified 01/11/22 08:12 Home Medication Medication Instructions Recorded multivitamin-ferrous 1 ea PO DAILY 11/17/17 fumarate-folic acid 18 mg-400 mcg tablet (Daily Multiple) aspirin 81 mg tablet,delayed 81 mg PO DAILY 07/09/21 release (Adult Low Dose Aspirin) valacyclovir 500 mg tablet 500 mg PO DAILY #60 tab 11/30/21 (Valtrex) Current Visit Medications: Current Medications Generic Name Dose Route Start Last Admin Trade Name Freq PRN Reason Stop Dose Admin Citric Acid/Sodium Citrate 30 ml 01/13/22 06:00 01/13/22 07:17 Sodium Citrate 30 Ml Cup PO 30 ml PREOP BRIE Administration Sodium Chloride 500 mls @ 0 mls/hr 01/13/22 05:58 Saline 500ml Bag IV PRN PRN As Directed Ringer's Solution 1,000 mls @ 125 mls/hr 01/13/22 06:00 01/13/22 06:45 IV 125 mls/hr INFUSION BRIE Administration Cefazolin Sodium/Dextrose 2 gm in 50 mls @ 100 mls/hr 01/13/22 06:00 01/13/22 06:56 Ancef Duplex IVPB 100 mls/hr PREOP BRIE Administration Azithromycin 500 mg/ Sodium 250 mls @ 250 mls/hr 01/13/22 06:00 Chloride IVPB PREOP BRIE IV Miscellaneous Supplies 1 each 01/13/22 06:00 Iv Access IV DIRECTED BRIE Sodium Chloride 0 ml 01/13/22 05:58 01/13/22 06:40 Normal Saline Flush 10 Ml Syr IVP 10 ml PRN PRN Administration PFSH Active Problems Active Problems: Problem Status Onset Code History of thrombocytopenia Z86.2 Family history of thyroid disease Z83.49 Hx of herpes genitalis 11/17/17 Z86.19 Anxiety F41.9 Z34.90 Missed menses N92.6 Gestational thrombocytopenia O99.119, D69.6 S/P section Z98.891 Non-reassuring electronic monitoring tracing O36.8390 Arrest of dilation, delivered, current hospitalization O62.1 Gestational hypertension O13.9 Elevated blood pressure reading R03.0 Z34.90 Missed O02.1 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 Medical History Medical History (Updated 11/30/21 @ 14:55 by Pilar Cornelius CNM) History of postoperative nausea and vomiting Surgical History Surgical History (Updated 04/17/20 @ 09:53 by Chaparro Field MD) Excision of 12 rib 08/2015 Hx of wisdom tooth extraction Tobacco Smoking/Tobacco Use Status: Never Alcohol Alcohol Intake: current Alcohol intake frequency: a few times a week Alcohol type: beer, wine and hard liquor Substance Use Substance use: Never Substance use type: does not use Details: alcohol: t-4 Prental History History 3 Para 1 Hx # Term Pregnancies 1 Multiple births 0 Hx # Pregnancies 0 Ectopic pregnancies 0 AB induced 0 Hx Number of Living Children 1 AB spontaneous 1 Past Pregnancies Del. Date GA/Weeks # Outcome Route Wgt Sex Labor Lgth Anesthes ia Location Prov Complic 03/28/19 10 No Unsuccessful 04/16/20 38 No Successful 3798.836 g Male [facility] Dr Field Delivery Date: 03/28/19 Last Updated by: Baylee Wu M.D. missed at 10w EGA. D&C. No complications. aoc Delivery Date: 04/16/20 Last Updated by: Pilar Stover CNM IOL for Gest HTN and low platelets, C/S at 6 cm for distress, cord was around neck. Efrain Vital Signs and Lab Results Vital Signs Most Recent Vital Signs in EMR: Most Recent Vital Signs Temp Pulse Resp BP Pulse Ox 36.6 C 75 16 138/81 99 01/13/22 06:12 01/13/22 06:12 01/13/22 06:12 01/13/22 06:12 01/13/22 06:12 Lab Results Blood Type / Crossmatch: Patient ABO/Rh A Positive 01/11/22 Antibody Screen NEGATIVE 01/11/22 Complete Blood Count: White Blood Count 8.36 10^3/uL (4.4-10.8) 01/11/22 08:54 01/11/22 Red Blood Count 3.79 10^6/uL (3.93-5.22) L 01/11/22 08:54 01/11/22 Hemoglobin 12.4 g/dL (11.2-15.7) 01/11/22 08:54 01/11/22 Hematocrit 36.6 % (36.0-46.0) 01/11/22 08:54 01/11/22 Platelet Count 142 10^3/uL (130-400) 01/11/22 08:54 01/11/22 Complete Metabolic Panel: No Data to Display Liver Function Panel: No Data to Display Coagulation Panel: No Data to Display Cardiac Panel: No Data to Display Arterial Blood Gas: No Data to Display Venous Blood Gas: No Data to Display Pancreas Panel: No Data to Display Thyroid Panel: No Data to Display Infectious Disease: Coronavirus (COVID-19)(PCR) Negative (Negative) 01/11/22 08:15 01/11/22 Coronavirus 2019 Source Nasal/Nares 01/11/22 08:15 01/11/22 Blood Cultures: No Data to Display Toxicology Panel: No Data to Display Panel: No Data to Display Anesthesia Assessment and Plan Anesthesia History Personal History: PONV Family History: No Family History of Anesthesia Complications Exercise Tolerance Exercise Tolerance: Metabolic Equivalents>4 Pertinent Negatives Pertinent Negatives: No Symptoms of GERD, No Major Cardiovascular Symptoms or Complaints, No Major Pulmonary Symptoms or Complaints and No History of CVA/TIA Cardiac & Pulmonary Exam Cardiac Exam: Normal S1/S2 Heart Sounds Pulmonary Exam: Clear Bilateral Breath Sounds Implantable Cardiac Device Does patient have a Pacemaker or an ICD?: No Airway Exam Known Difficult Airway: No Mallampati Class: 2 Mouth Opening: Normal (> 3cm) Thyromental Distance: Greater than 3 cm Neck Range of Motion: Full ROM Neck Circumference: Normal Teeth Condition: Normal Dentition ASA Classification ASA Score: ASA 2 Emergency Case?: No NPO Status NPO Status: NPO Clears >2 hours, Solids >8 hours Status Status: Not Relevant due to Medical History Anesthesia Plan Resuscitation Status: Full Code Anesthesia Technique: Spinal Anesthesia Airway Planned: Natural Airway Monitors Used: Standard Monitors
[2022-01-13] MEDS: AZITHROMYCIN 500 MG in Normal Saline 250 ML 250 MG IVPB (07:40)
[2022-01-13] MEDS: Bupivacaine 0.25% Pres-Free 30 ML VIAL (08:50)
[2022-01-13] MEDS: Oxytocin/Normal Saline 30 UNIT/500 ML BAG 95 UNITS IV (08:50)
--- NOTE | 2022-01-13 09:04 | PDOC.OPNB_ITS ---
Date of service: 01/13/22 Time of Service: 09:04 Operative Note Operative Note Delivery Method: Scheduled and Repeat Previous LT Incision: Yes DATE OF PROCEDURE: 01/13/22 PRE-OP DIAGNOSES: at 41 weeks and 1 day. Prior low transverse section. POST-OP DIAGNOSES: same Occiput transverse PROCEDURE: Repeat low transverse section SURGEON: Fani Currie Assisting Surgeon: Baylee Wu Anesthesia: local and spinal Estimated blood loss (mL): 250 Pathology: none sent Complications: None Patient was transported to: floor Patient's condition: stable Indications: 2 para 1 at 41 weeks and 1 day. Prior low transverse section. No onset of labor. Findings: Normal tubes, ovaries, uterus. Delivery of a viable male infant with Apgars 8 and 9. Persistent occiput transverse position Procedure Description: Patient was taken the operating suite with IV running where she was placed in the seated position. Spinal anesthesia was administered, tested and found to be adequate after she was in the dorsal supine position with leftward tilt. Vaginal preparation was performed. Kirkland catheter was inserted. Patient received antibiotic prophylaxis with 2 g of Ancef, and 500 mg of azithromycin. heart tones were 150 after placement of spinal anesthesia. She was then prepped and draped in usual sterile fashion. A Pfannenstiel skin incision was made through her previous surgical scar. Incision was carried down to the underlying fascia which was nicked in the midline and extended laterally. The rectus muscles identified and split in the middle. Peritoneum identified tented up and entered sharply. There was noted to be adhesions of the lower uterine segment to the bladder which were meticulously sharply dissected with Metzenbaum scissors. This allowed the bladder to drop low outside of the operative field. Bladder blade was inserted and bladder created. A low transverse uterine incision was made and extended bluntly laterally. Fetus was found to be in the occiput transverse position and after significant effort with a vertex was elevated through the incision with the assistance of a Kiwi vacuum extractor. Shoulders followed with ease. There is no evidence of nuchal cord. The remainder of the body was delivered atraumatically. Three-vessel cord was noted, clamped x2, and cut. The baby was then handed off to the waiting yield improvement engineer. Cord segment and cord blood sample were both obtained. The placenta was manually expressed from the uterus and found to be intact. The uterus was then cleared of all clot and debris. The uterine incision was closed using 0 Monocryl suture in a 2 layer closure, first layer being running locked, second layer being imbricated. There was one area that was nonhemostatic at the right aspect of the incision which was oversewn with 0 Monocryl suture and found to be hemostatic. Abdomen was then irrigated copious amounts of normal saline and the fascial incision closed using 0 Vicryl suture in a running fashion. Subcutaneous tissue irrigated copious muscle normal saline. Subcu tissue was then reapproximated with 3-0 Vicryl suture in a simple interrupted fashion and the skin edge reapproximated with 4-0 Monocryl, undyed. Incision was infiltrated with quarter percent Marcaine for pain control after delivery. Steri-Strips were placed as was a sterile dressing. Patient was taken to the center in stable condition. Kirkland catheter was noted to be draining clear yellow urine. Complications: None apparent EBL: 250 mL Pathology: None sent Findings: Normal tubes, ovaries, uterus. Delivery of viable male with assistance of a Kiwi vacuum extractor.
[2022-01-13] MEDS: Scopolamine 1 MG/3 DAYS PATCH TD (11:17)
[2022-01-13] MEDS: Ketorolac 30 MG/ML VIAL IVP ×2 (15:49→21:55)
[2022-01-14 00:30] VITALS: BP 106/70; PULSE 60; RESP 18; TEMP 37.1
[2022-01-14 04:00] VITALS: BP 105/64; PULSE 60; RESP 18; TEMP 36.9
[2022-01-14] MEDS: Ketorolac 30 MG/ML VIAL IVP ×2 (04:22→09:57)
[2022-01-14] MEDS: Normal Saline Flush 10 ML SYR IVP ×2 (04:23→10:02)
[2022-01-14 06:41] LABS: Abs Immature Grans 0.05 10^3/uL (0.0-0.06); Absolute Basophil Count 0.03 10^3/uL (0.0-0.2); Absolute Eosinophil Count 0.16 10^3/uL (0.0-0.7); Absolute Lymphocyte Count 1.48 10^3/uL (1.2-3.4); Absolute Monocyte Count 0.91 10^3/uL (0.1-0.8); Absolute Neutrophil Count 7.08 10^3/uL (1.2-6.7); Basophils % 0.3; Eosinophils % 1.6; HCT 30.2 % (36.0-46.0); HGB 10.2 g/dL (11.2-15.7); Immature Grans % 0.5; Lymphocytes % 15.2; MCHC 33.8 % (32.0-36.0); MCV 97.7 fL (80-95); MPV 11.7 fL (8.0-11.0); Monocytes % 9.4; Nucleated RBC 0 %; Platelet Count 118 10^3/uL (130-400); RBC 3.09 10^6/uL (3.93-5.22); RDW 12.6 % (11.7-14.6); RDW-SD 44.5 fL; WBC 9.71 10^3/uL (4.4-10.8)
[2022-01-14 07:30] VITALS: BP 120/73; PULSE 60; RESP 12; TEMP 36.9
--- NOTE | 2022-01-14 08:01 | OBPPV_ITS ---
Date of service: 01/14/22 Time of Service: 08:01 Assessment and Plan Assessment and plan (1) Status post repeat low transverse section: Status: Acute Assessment and plan: She is postoperative day #1 status post repeat low transverse section for delivery of a viable male . She is doing well. She is having a normal postoperative course. Hemoglobin is stable. Vital signs are stable. She is breast-feeding without. She and her do wish for circumcision which be performed today. Will reevaluate discharge today or tomorrow. All questions were answered. Continue post , postoperative routine care. Subjective Subjective Interval history: Patient seen and examined this morning postoperative day #1. Doing well. Good bonding. Breast-feeding without difficulty. Voiding without difficulty. Pain is well controlled. She has not been ambulatory. She would like discharge as early as possible. We discussed tomorrow as an opportunity. She does wish to have her son circumcised which will happen today. Patient comments: No complaints, Pain well controlled and Tolerating diet Patient's Mood: good shoot Henrietta baby status: Doing well and Nursing well feeding status: Exclusively breast feeding Exam Physical Exam Vital signs: Temp Pulse Resp BP Pulse Ox 98.4 F 60 12 120/73 100 01/14/22 07:30 01/14/22 07:30 01/14/22 07:30 01/14/22 07:30 01/13/22 11:00 Vital Signs Reviewed: Yes Narrative: Patient seen and examined this morning. Comfortable, doing well. No issues or concerns. Constitutional Constitutional: no acute distress and average body habitus HEENT Exam HEENT Exam: Normal Detailed HEENT Exam Eye: Present EOMI and PERRL Neck Exam Neck Exam: Normal Respiratory Exam Respiratory Exam: Normal Cardiovascular Exam Cardiovascular Exam: Normal Detail Cardiovascular Exam Cardiovascular: Present RRR Abdominal Exam Abdomen: Other (Soft, nontender.) Fundal Exam Fundus: Below Umbilicus and Firm Extremities Exam Extremity Exam: Normal; negative Calf Tenderness or Edema Psychiatric Exam Psychiatric Exam: Normal Results Hemoglobin/Hematocrit: Hgb 10.2 g/dL (11.2-15.7) L D 01/14/22 06:01 Hct 30.2 % (36.0-46.0) L 01/14/22 06:01 Abnormal Lab Findings: Abnormal Labs 01/14/22 06:01 RBC 3.09 L Hgb 10.2 L D Hct 30.2 L MCV 97.7 H Plt Count 118 L MPV 11.7 H Absolute Neutrophils 7.08 H Absolute Monocytes 0.91 H
--- NOTE | 2022-01-14 12:43 | W.PM.OBDISCH ---
Date of service: 01/14/22 Time of Service: 12:43 DS: Diagnosis Discharge Diagnosis (1) Status post repeat low transverse section: Status: Acute Asessment and Plan: Postoperative day #1 status post repeat low transverse section. Doing well. Discharge home today. We will follow-up in 2 weeks. Discharge Plan Disposition Patient Disposition: HOME Condition: Good Discharge Details Reason For Visit: Delivery Admit Date/Time: 01/13/22 05:59 Admit Provider: Fani Currie Attending Provider: Fani Currie Primary Care Provider: Cr Aguilar Hospital Course Hospital Course: Patient underwent a repeat low transverse section and had an uncomplicated course. She was discharged home postoperative day #1, ambulating, tolerating regular diet oral pain medication with stable vital signs. She will be seen in the office by me in 2 weeks. Home Meds and New Rx's Prescriptions: New ibuprofen [IBU] 800 mg tablet 800 mg PO Q8H Qty: 60 1RF oxycodone-acetaminophen [Percocet] 5-325 mg tablet 1 tab PO Q8H PRNQty: 10 0RF docusate sodium [Colace] 100 mg capsule 100 mg PO BID Qty: 30 0RF Continued Daily Multiple 1 EACH tablet 1 ea PO DAILY 0RF Discontinued aspirin [Adult Low Dose Aspirin] 81 mg tablet,delayed release (DR/EC) 81 mg PO DAILY 0RF valacyclovir [Valtrex] 500 mg tablet 500 mg PO DAILY Qty: 60 0RF Discharge Instructions Activity:: Activity as Tolerated Equipment/Supplies:: No Equipment Needed Diet:: As Tolerated Discharge Orders Discharge Orders: Discharge Order (Routine); Ordered 01/14/22 Ordered By: Fani Currie OB:DS Summary Contraception Discussed Contraception Discussed: Yes, Infant Gender-Baby A: Male weight: 8 lb 3.572 oz Status at Discharge Functional status at discharge: independent ambulation Overall status at discharge: patient is back to baseline Mental Status: mental status grossly normal Speech and Movement: speech and movement normal Mood: congruent mood Affect: normal affect Exam Physical Exam Vital signs: Temp Pulse Resp BP Pulse Ox 98.4 F 60 12 120/73 100 01/14/22 07:30 01/14/22 07:30 01/14/22 07:30 01/14/22 07:30 01/13/22 11:00 Constitutional Comments: See physical exam from progress note dated 01/14/2022 ON LICENSE OF [facility] All Active Problems Status post repeat low transverse section (Acute) History of thrombocytopenia (Acute) Family history of thyroid disease (Acute) Hx of herpes genitalis (Acute 11/17/17) Type 1 Anxiety (Chronic) hydroxyzine and buspirone in the past (Acute) Missed menses (Acute) S/P section (Acute) Arrest of dilation, delivered, current hospitalization (Acute) Gestational hypertension (Acute) Mullerian anomaly of uterus (Acute) 03/16/2019. Septum extending to the edge of the length of the uterine cavity diagnosed with the time of a dating OB ultrasound Medical History History of postoperative nausea and vomiting Surgical History Excision of 12 rib 08/2015 Hx of wisdom tooth extraction Family History Sister Thyroid disease Maternal Grandfather Diabetes on insulin Social History Smoking/Tobacco Use Status: Never Smoking risk assessment performed?: Yes Alcohol Intake: current Alcohol Intake frequency: a few times a week Alcohol type: beer, wine and hard liquor Drug use: Never Substance use type: does not use Details: alcohol: t-4 Household members: spouse and other Details: Moose Number of Children: 0 current occupation: [employer] Do you feel safe at home: Yes Do you feel safe in your relationship?: Yes Female Reproductive History Menstrual Age of Menarche: 15 control method: none History History 3 Para 1 Hx # Term Pregnancies 1 Multiple births 0 Hx # Pregnancies 0 Ectopic pregnancies 0 AB induced 0 Hx Number of Living Children 1 AB spontaneous 1 Past Pregnancies Del. Date GA/Weeks # Outcome Route Wgt Sex Labor Lgth Anesthesia Location Prov Complic 03/28/19 10 No Unsuccessful 04/16/20 38 No Successful 8 lb [address] Field Delivery Date: 03/28/19 Last Updated by: Baylee Wu M.D. missed at 10w EGA. D&C. No complications. aoc Delivery Date: 04/16/20 Last Updated by: Pilar Stover CNM IOL for Gest HTN and low platelets, C/S at 6 cm for distress, cord was around neck. Efrain DS: Data Vitals/I&O Vitals and I&O: Vital Signs Temperature 98.4 F 01/14/22 07:30 Pulse 60 01/14/22 07:30 Pulse Rhythm Regular 01/14/22 07:30 Respiratory Rate 12 01/14/22 07:30 Blood Pressure 120/73 01/14/22 07:30 Blood Pressure Mean 88 01/14/22 07:30 Pulse Oximetry 100 01/13/22 11:00 Oxygen Delivery Method Room Air 01/13/22 06:12 Oxygen Flow Rate 0 01/13/22 06:12 Pain Level 4 01/14/22 09:57 Intake & Output 01/13/22 01/14/22 01/14/22 23:59 11:59 23:59 Intake Total 1100 / 1800 Output Total 1650 / 2550 700 / 700 Balance -550 / -750 -700 / -700 Intake: Oral 1100 / 1100 Output: Urine 1650 / 2050 700 / 700 Other: Urine Color Pale Urine Appearance Clear Data Completed and Pending Labs on day of discharge: Labs from last 24 hours 01/14/22 06:01 WBC 9.71 RBC 3.09 L Hgb 10.2 L D Hct 30.2 L MCV 97.7 H MCH 33.0 MCHC 33.8 RDW 12.6 Plt Count 118 L MPV 11.7 H Immature Gran % 0.5 Neutrophils % 73.0 Lymphocytes % 15.2 Monocytes % 9.4 Eosinophils % 1.6 Basophils % 0.3 Nucleated RBC % 0 Absolute Neutrophils 7.08 H Absolute Lymphocytes 1.48 Absolute Monocytes 0.91 H Absolute Eosinophils 0.16 Absolute Basophils 0.03
--- NOTE | 2022-01-14 13:57 | W.ANESPOSTOP ---
Postoperative Evaluation Date, Time and Location Date Performed: 01/14/22 Time Performed: 13:58 Patient Location: Obstetrics Vital Signs Most Recent Imported Vital Signs: Most Recent Vital Signs Temp Pulse Resp BP Pulse Ox 36.9 C 60 12 120/73 100 01/14/22 07:30 01/14/22 07:30 01/14/22 07:30 01/14/22 07:30 01/13/22 11:00 Pain Score Most Recent Pain Score: Most Recent Pain Score Pain Level 4 01/14/22 09:57 Assessment Mental Status: Awake (Alert & Oriented to Patient Baseline) Airway and Respiratory Function: Patent airway with normal (patient baseline) respiratory exam Cardiovascular Function: Hemodynamically Stable Hydration Status: Adequately Hydrated Nausea & Vomiting: No Nausea or Vomiting Pain: Pain is tolerable per patient Peripheral Nerve Block: Patient did not receive a nerve block
== END 2022-01-14 15:55 | disposition home or self-care (01) | DRG 788 ==
LOC: SUR 06:21 → BCD 06:39 → OBS 06:45
PROVIDERS: Admitting Provider Obstetrics & Gynecology; PCP Internal Medicine; Visit Provider Obstetrics & Gynecology
PROC: 10D00Z1 Extraction of Products of Conception, Low, Open Approach (ICD-10-PCS; CPT 59514; principal; 2022-01-13 07:30)
DX: O34.211 Maternal care for low transverse scar from previous cesarean delivery (principal); Z37.0 Single live birth; Z3A.41 41 weeks gestation of pregnancy; N85.8 Other specified noninflammatory disorders of uterus
CPT/HCPCS: 59514; 36415; 85025; J0456; J0690; J1885; J2405; J3010

== ENCOUNTER 2022-02-25 13:48 | Outpatient (REF) | payer BC, SELFPAY ==
--- NOTE | 2022-02-25 14:00 | PAPFT_PTH ---
PATIENT: Ying Alarcon LOC: [facility] U#:[id number] AGE/SX: 31/F ROOM: RE02/25/[address]: Fani Currie DO : 1990 BED: DIS: 02/25/2022 SPEC #: [id number] RECD: 02/25/22 17:33 STATUS: [place] REQ #: [id number] LARON: 02/25/22 14:[address]: Fani Currie DEPT: [facility] Cytology RECD BY: Shereen Santoyo ENTERED: 02/25/22 17:33 SP TYPE: PAPFT OTHR DR: Cr Aguilar Tissues: 1 - CX/ENDOCX FOR PAP SMEARS Procedures: PAP THIN PREP/UVM Screening HPV DNA PROBE Comments: [id number]
== END 2022-02-25 13:49 | disposition home or self-care (01) ==
LOC: LBN 13:48
PROVIDERS: PCP Internal Medicine; Visit Provider Obstetrics & Gynecology
DX: Z12.4 Encounter for screening for malignant neoplasm of cervix (principal); Z11.51 Encounter for screening for human papillomavirus (HPV)
CPT/HCPCS: 88142; 87624

== ENCOUNTER 2024-12-20 08:35 | Outpatient (REF) | payer BC, SELFPAY ==
[2024-12-20 15:11] LABS: HCT 41.2 % (36.0-46.0); HGB 13.6 g/dL (11.2-15.7); MCH 31.6 pg (27.0-33.0); MCV 96 fL (80-95); MPV 10.8 fL (8.0-11.0); Platelet Count 215 10^3/uL (130-400); RBC 4.31 10^6/uL (3.93-5.22); RDW 12.1 % (11.7-14.6); RDW-SD 42.3 fL
[2024-12-20 16:04] LABS: ALT 25 U/L (14-59); AST 21 U/L (15-37); Albumin 4.1 g/dL (3.4-5.0); Alkaline Phosphatase 54 U/L (46-116); Anion Gap 6.8 mmol/L (3-11); BUN 15 mg/dL (7-18); Bilirubin, Total 0.5 mg/dL (0.2-1.0); CO2 30.2 mmol/L (21.0-32.0); Calcium 9.2 mg/dL (8.5-10.1); Calculated LDL 101 mg/dL (<100); Chloride 105 mmol/L (98-107); Cholesterol 179 mg/dL (<200); Estimated GFR 76.29 (mL/min/1.73m2); Glucose 84 mg/dL (74-106); HDL Cholesterol 64 mg/dL (>or=50); Potassium 4.6 mmol/L (3.5-5.1); Sodium 142 mmol/L (136-145); Total Protein 7.4 g/dL (6.4-8.2); Triglyceride 70 mg/dL (<150)
== END 2024-12-20 08:36 | disposition home or self-care (01) ==
LOC: NCHCN 08:35
PROVIDERS: PCP Nurse Practitioner Family; Visit Provider Nurse Practitioner Family
DX: Z00.00 Encounter for general adult medical examination without abnormal findings (principal)
CPT/HCPCS: 80053; 80061; 85027

== ENCOUNTER 2025-01-01 00:47 | Outpatient (CLI) | payer BC, SELFPAY ==
--- NOTE | 2025-01-01 | DI.US_ITS ---
Exam(s) MG MAMMO DIAGNOSTIC BI US BREAST LT LIMITED EXAM: MG MAMMO DIAGNOSTIC BI AND COMPLETE LEFT BREAST ULTRASOUND CLINICAL HISTORY: MASS LT BREAST, N63.20. TECHNIQUE: BILATERAL CC AND MLO mammographic images were obtained with 3D tomosynthesis technique an d utilizing computer aided detection (CAD). COMPLETE LEFT BREAST ULTRASOUND was performed including all 4 quadrants as well as the axillary regio n COMPARISON: None. This is baseline breast imaging on a 34-year-old female patient. She did not present to her provider with a breast lump. Instead her provider found a possible lump i n the upper outer quadrant 2 o'clock position of her left breast and elected to center for breast balbina ging. FINDINGS: DIAGNOSTIC BILATERAL MAMMOGRAM: The fibroglandular tissue pattern is dense bilaterally. There are no significant radiograph findings in the right breast. In the upper-outer quadrant of the left breast there is a nodular density which on 3D imaging has javy earance of a benign intramammary lymph node. There are no spiculated masses. Small group of benign- appearing microcalcifications is seen posteriorly in left breast. There is no significant architectural distortion or skin thickening-retraction. COMPLETE LEFT BREAST ULTRASOUND: At the 1 o'clock position there is a benign microcyst measuring 3 mm. At the 2 o'clock position there are 2 findings which have the appearance of benign intramammary lymph nodes, these measuring 5 x 3 mm and 3 x 2 mm. The larger of these 2 is most probably what is seen o n the mammogram. There are no focal ultrasound findings in the remainder of the left breast and scanning of the left a xilla is negative for significant adenopathy. IMPRESSION: 1. Dense bilateral fibroglandular tissue on mammography with no mammographic evidence of malignancy. 2. Three small benign-appearing findings in the upper outer quadrant of the left breast (1-2 o'clock positions) on ultrasound, as described individually above. Appropriate follow-up as discussed by myself with the patient today is repeat breast ultrasound in 6 months. Given the density of this patient's fibroglandular tissue I recommend that the follow-up ult rasound be a bilateral complete breast ultrasound exam. The patient was informed of the findings and follow-up recommendations by myself prior to leaving the department today. BI-RADS Category 3 - 6 month - Probably Benign Finding: Recommend follow-up mammography in 6 months Breast Density - Category C - Heterogeneously dense Breast density Category C or D implies that the patient has dense breast tissue. Dense breast tissue can make it harder to find cancer on a mammogram. Dense breast tissue is also associated with an incr eased risk of breast cancer. This information about the result of the mammogram report was provided to the patient to raise their awareness. Use this report when you speak with the patient about their risks for breast cancer, which includes their family history. At that time, you may recommend additional screening tests (Ultrasoun d or MRI) as these tests may add significant information. A negative radiographic report should not delay biopsy if a dominant or clinically suspicious mass is present. Up to ten percent of cancers are not identified on mammography. A negative report may reinforce clinical impression. Adenosis and dense breasts may obscure an underlying neoplasm. False positive reports average 6 to 10%. Patient will receive a letter notifying them of these results.
== END 2025-01-01 01:07 ==
LOC: DI 00:47
PROVIDERS: PCP Nurse Practitioner Family; Visit Provider Nurse Practitioner Family
DX: N63.21 Unspecified lump in the left breast, upper outer quadrant (principal); Z12.31 Encounter for screening mammogram for malignant neoplasm of breast
CPT/HCPCS: 76642; 77062; 77066; G0279